=== PATIENT | female | born 2000 | race Caucasian/White ===

== ENCOUNTER 2024-05-06 16:15 | Emergency (ER) | payer BC, SELFPAY ==
[2024-05-06 16:17] VITALS: BP 126/92; PULSE 94; RESP 16; TEMP 36.4; O2SAT 99; BMI 36.6
--- NOTE | 2024-05-06 16:27 | CRLHL7_ITS ---
For Patients: As a result of the Cures Act, medical imaging exams and procedure reports are released immediately into your electronic medical record. You may view this report before your referring provider. If you have questions, please contact your health care provider. INDICATION: Fall 9 days ago. Persistent pain. TECHNIQUE: Right wrist three views. COMPARISON: None. FINDINGS: No acute fracture or dislocation. No additional osseous abnormality. Soft tissues as imaged are unremarkable. IMPRESSION: No acute osseous abnormality. Dictated by Royer Vargas MD @ 05/06/2024 5:20:25 PM (Electronically Signed)
--- NOTE | 2024-05-06 16:28 | ED_ITS ---
HPI - Extremity Injury (Upper) General Chief Complaint: Extremity Pain/Injury, Upper Stated Complaint: fall, R wrist injury Time Seen by Provider: 05/06/24 16:17 History of Present Illness HPI narrative: This 22-year-old female comes in with pain in her right wrist. She states that she fell onto her right wrist 9 days ago and comes in today because she has continued pain. She states that she called the clinic and was told to come here for evaluation. She does not report any other injury. She states that the pain is more localized on the ulnar aspect of her right wrist. She has normal range of motion but has some discomfort when doing so. Related Data Home Medications ?Medication ?Instructions ?Recorded ?Confirmed metformin 1,000 mg tablet 1,000 mg PO QAM 05/06/24 05/06/24 Allergies Allergy/AdvReac Type Severity Reaction Status Date / Time amoxicillin [From Augmentin] Allergy Severe Hives Verified 05/06/24 16:23 clavulanic acid Allergy Severe Hives Verified 05/06/24 16:23 [From Augmentin] Penicillins Allergy Intermediate Hives Verified 05/06/24 16:23 Review of Systems Status of ROS: Reports: 10 or more systems reviewed and unremarkable except as noted in History and below Narrative: Constitutional: No fevers, no weight gain or loss. Eyes: No discharge. No vision changes. HENT: No congestion, no sore throat, no ear pain. Cardiovascular: No chest pain, no palpitations. Respiratory: No shortness of breath, no wheezes, no cough. Gastrointestinal: No abdominal pain, no vomiting, no diarrhea. Genitourinary: No dysuria, no hematuria. Musculoskeletal: Normal range of motion. Right wrist pain as described above. Skin: No rashes, no pruritis. Neurological: No dizziness, weakness, sensory change, speech change. Endo/Heme/Allergies: No bruising or bleeding. No polydipsia. Pysch: no suicidality, no anxiety, no insomnia. All other systems reviewed and are negative. PFSH PFS Social History Smoking Status: Never smoker How often do you have a drink containing alcohol: 2-4 times a month AUDIT-C Alcohol total score: 2 Non-prescribed substance use: denies use Exam Narrative: Exam Narrative: Constitutional: Well-developed, well-nourished, no acute distress. HEENT: Normocephalic, atraumatic. Neck: Normal range of motion. Nontender. Supple. Heart: Intact distal pulses. Lungs: No chest discomfort. No wheezes, rhonchi, or rales. Abdomen: Nontender. Back: Normal range of motion. Extremities: Normal range of motion. Right wrist pain that is more localized on the ulnar aspect. No swelling or sign of deformity. Skin: Intact. No rash. Warm. No erythema or pallor. Neurologic: No altered sensation. No weakness. Alert and oriented. Psychiatric: No suicidality. No anxiety or depression. No insomnia. Nursing notes and vitals signs are reviewed. Const: Vital Signs, click to edit/add: Vital Signs - 24 hr 05/06/24 16:17 Temperature 97.5 F L Pulse Rate [Pulse Oximeter] 94 Respiratory Rate 16 [facility] 126/92 H Pulse Oximetry 99 Oxygen Delivery Me thod Room Air Course Vital Signs Vital signs: Initial Vital Signs Temperature 97.5 F L 05/06/24 16:17 Temperature Source Temporal Artery Scan 05/06/24 16:17 Pulse Rate 94 05/06/24 16:17 Pulse Rhythm Regular 05/06/24 16:17 Pulse Strength 3+ Normal 05/06/24 16:17 Respiratory Rate 16 05/06/24 16:17 Blood Pressure 126/92 H 05/06/24 16:17 Blood Pressure Mean 103 05/06/24 16:17 Blood Pressure Position Sitting 05/06/24 16:17 Pulse Oximetry 99 05/06/24 16:17 Oxygen Delivery Method Room Air 05/06/24 16:17 Vital Signs Temperature 97.5 F L 05/06/24 16:17 Pulse Rate 94 05/06/24 16:17 Respiratory Rate 16 05/06/24 16:17 Blood Pressure 126/92 H 05/06/24 16:17 Pulse Oximetry 99 05/06/24 16:17 Oxygen Delivery Method Room Air 05/06/24 16:17 Temperature 97.5 F L 05/06/24 16:17 Pulse Rate 94 05/06/24 16:17 Respiratory Rate 16 05/06/24 16:17 Blood Pressure 126/92 H 05/06/24 16:17 Pulse Oximetry 99 05/06/24 16:17 Oxygen Delivery Method Room Air 05/06/24 16:17 MDM - Extremity Injury (Upper) MDM Narrative Medical decision making narrative: This patient injured her right wrist from a fall that occurred about 9 days ago. X-ray images today show no acute findings. The patient did receive a wrist splint and is encouraged to use it occasionally as needed but also encouraged to increase activity as tolerated. Imaging Data XR R Wrist: Radiologist's impression: No acute osseous abnormality. Discharge Plan Discharge Clinical Impression: Sprain and strain of wrist Patient Disposition: Home, Self-Care Condition: Stable Additional Instructions: Wear splint as needed but also increase activity as tolerated. Use [id number] medicines also as needed and directed. Follow up with MD return if worsening. Prescriptions: No Action metformin 1,000 mg tablet 1,000 mg PO QAM Follow Up/Referrals: Houston Mcmillan MD [Primary Care Provider] - Stand Alone Forms: [employer] Info Instructions
== END 2024-05-06 17:49 | disposition home or self-care (01) ==
PROVIDERS: Emergency Provider Emergency Medicine Emergency Medical Services; PCP Family Medicine
DX: S63.501A Unspecified sprain of right wrist, initial encounter (principal); W19.XXXA Unspecified fall, initial encounter
CPT/HCPCS: 73110; 99283; 99284